=== PATIENT | female | born 1985 ===

== ENCOUNTER 2024-04-14 13:26 | Emergency (ER) | payer OTHER, SELFPAY ==
[2024-04-14 13:47] VITALS: BP 150/85; PULSE 71; RESP 18; TEMP 37; O2SAT 100
--- NOTE | 2024-04-14 14:12 | ED_ITS ---
HPI - URI/Sore Throat General Chief Complaint: Upper Respiratory Infection Stated Complaint: cough and phlegm Time Seen by Provider: 04/14/24 14:00 Source: patient, RN notes reviewed and old records reviewed Mode of arrival: ambulatory Limitations: no limitations History of Present Illness HPI Narrative: Patient presents with 3-4 week history sinus congestion, pain, postnasal drainage. States over this past week symptoms have worsened significantly. She states she feels as though she is losing her voice. She is more tired than normal. She has tried multiple cfdk-imh-escqiat remedies with poor relief. Sta chadd that postnasal drainage is causing a cough which makes her stay up When trying to sleep. She denies any shortness of breath. She does not believe she has had fever, although she has occasional chills. She has no other concerns or complaints today. She denies any injury or trauma. Related Data Home Medications ?Medication ?Instructions ?Recorded ?Confirmed ?Last Taken ?Type fluoxetine 20 mg capsule mg 04/14/24 Unknown History Allergies Allergy/AdvReac Type Severity Reaction Status Date / Time amoxicillin Allergy Mild HIVES Verified 04/14/24 13:53 Review of Systems Review of Systems: All systems reviewed & are unremarkable except as noted in HPI and below Constitutional: Constitutional: Reports no additional constitutional complaints, Reports chills, Reports difficulty sleeping, Reports headache(s) and Reports lethargy ENT: Reports system reviewed and no additional complaints, except as documented, Reports change in voice, Reports hoarseness, Reports sinus pain, Reports sinus pressure and Reports sore throat Cardiovascular: Cardiovascular: Reports no additional cardiovascular complaints Respiratory: Respiratory: Reports no additional respiratory complaints and Reports cough Gastrointestinal: Gastrointestinal: Reports no additional gastrointestinal complaints [facility] Past Medical History Medical History (Updated 04/15/24 @ 08:06 by Mayte Jacinto APRN) Cholecystectomy planned Anxiety Surgical History Surgical History (Updated 10/19/22 @ 10:12 by Tamika Smith) H/O LEEP Family History Family History (Updated 10/19/22 @ 10:12 by Tamika Smith) Mother Hypertension Depression Anxiety Sibling Anxiety Depression Social History Social History (Updated 10/19/22 @ 10:13 by Tamika Smith) Smoking status: Never smoker Alcohol intake: current Alcohol use details: Occasionally Substance use: never Lack of Transportation: No Lack of Food: Never True Current Housing: I Have Housing Concerned About Future Housing: No Difficulty Paying Gas/Electric Bills: No Difficulty Paying for Meds: No Currently Unemployed: No Education: Associate Degree Comments At the time of my signature, I reviewed and agree with the nursing past medical, surgical, social, and family history. There is no relevant family history pertinent to the patient complaint. Exam Const: General: cooperative, no acute distress, alert and awake Orientation/consciousness: oriented to person, oriented to place and oriented to time HENMT: Head: normal to inspection Ears: TM abnormal with fluid behind the TM bilateral Face and sinus: sinus tenderness Mouth: Yes moist mucous membranes Throat: postnasal drainage Resp: Effort & Inspection: normal respiratory effort and able to speak in complete sentences Auscultation: clear to auscultation bilaterally, no crackles, no rales, no rhonchi and no wheezes Cardio: Palpation: normal PMI Rate: regular rate Rhythm: regular rhythm Heart sounds: S1 normal heart sound present and S2 normal heart sound present Neuro: General: oriented to person, oriented to place and oriented to time Cranial nerves: Yes CN's II-XII intact bilaterally Psych: Appearance: grossly normal Thought process: Normal thought process present Insight: Good insight present (Psych) Judgement: Good judgement present (Psych) Course Course Level of Care: Express Care Visit Vital Signs Vital signs: Vital Signs Temperature 98.6 F 04/14/24 13:47 Pulse Rate 71 04/14/24 13:47 Respiratory Rate 18 04/14/24 13:47 Blood Pressure 150/85 H 04/14/24 13:47 Pulse Oximetry 100 04/14/24 13:47 Oxygen Delivery Room Air 04/14/24 13:47 Temperature 98.6 F 04/14/24 13:47 Pulse Rate 71 04/14/24 13:47 Respiratory Rate 18 04/14/24 13:47 Blood Pressure 150/85 H 04/14/24 13:47 Pulse Oximetry 100 04/14/24 13:47 Oxygen Delivery Room Air 04/14/24 13:47 Reviewed MDM - URI/Sore Throat MDM Narrative Medical decision making narrative: History and exam consistent with sinusitis. Treat as same. Patient is nontoxic appearing and stable for discharge home on p.o. antibiotic therapy. Discharge instructions reviewed with patient, as well as provided in writing per nursing staff. The instructions also include specific and strict return/GO TO THE ER as well as f/u information. All questions have been answered, and the patient deny any further questions with discharge and discharge plan. Some parts of this dictation were generated by voice recognition software and may contain typographical and/or grammatical inaccuracies. Differential Diagnosis Differential diagnosis: Likely upper respiratory infection, otitis media, sinusitis, viral infection and bronchitis Medical Records Attestation: I reviewed the patient's medical records. Discharge Plan Discharge Clinical Impression: Elevated blood pressure reading Sinusitis Qualifiers: Sinusitis location: unspecified location Chronicity: unspecified Qualified Code(s): J32.9 - Chronic sinusitis, unspecified Patient Disposition: Home, Self-Care Condition: Stable Instructions: Antibiotic Form, Sinusitis (ED) Additional Instructions: take medication as prescribed. Follow with primary care provider. Emergency department for new or worsening symptoms. Patient Language: Kazakh Prescriptions: New doxycycline hyclate 100 mg tablet 100 mg PO BID Qty: 14 0RF doxycycline hyclate 100 mg capsule 100 mg PO BID Qty: 14 0RF No Action fluoxetine 20 mg capsule Follow-up/Referrals: UNKNOWN,DOCTOR [Primary Care Provider] - Stand Alone Forms: Work/School Release IP Time of Disposition: 14:17
== END 2024-04-14 14:22 | disposition home or self-care (01) ==
PROVIDERS: Emergency Provider Nurse Practitioner Family
DX: J32.9 Chronic sinusitis, unspecified (principal); R03.0 Elevated blood-pressure reading, without diagnosis of hypertension
CPT/HCPCS: 99213; G0463